=== PATIENT | male | born 1975 | race Two or more races ===

== ENCOUNTER 2018-07-12 10:06 | Emergency (ER) | payer SELFPAY ==
[~2018-07-12] VITALS: Ht 165.1 cm; Wt 90.7 kg
[2018-07-12 10:21] VITALS: BP 145/109
[2018-07-12] MEDS ORDERED: KETOROLAC TROMETH 60MG/2ML VIAL IM ONE (11:30)
== END 2018-07-12 11:50 | disposition home or self-care (01) ==
LOC: ER 10:06
DX: K64.4 Residual hemorrhoidal skin tags (principal)
CPT/HCPCS: 96372; 99283; J1885